=== PATIENT | male | born 1995 | race Caucasian/White ===

== ENCOUNTER 2017-01-01 19:39 | Emergency (ER) | payer OTHER | END 2017-01-01 22:07 | disposition home or self-care (01) | LOC: ER 19:39 | DX: S62.307B Unspecified fracture of fifth metacarpal bone, left hand, initial encounter for open fracture (principal); S61.412A Laceration without foreign body of left hand, initial encounter; S01.511A Laceration without foreign body of lip, initial encounter; F17.220 Nicotine dependence, chewing tobacco, uncomplicated; V49.40XA Driver injured in collision with unspecified motor vehicles in traffic accident, initial encounter | CPT/HCPCS: 96372 ==